=== PATIENT | female | born 1960 | race American Indian/Alaskan Native ===

== ENCOUNTER 2017-09-15 10:12 | Inpatient (IN) | payer OTHER ==
--- NOTE | 2017-09-15 11:06 | Emergency Department Report ---
Chief Complaint: Chest Pain Stated Complaint: CHEST PAIN Time Seen by Provider: 09/15/17 11:05 - HPI History of Present Illness: Patient here states that she has mid to left chest pain that started at 3:00 this morning complaining of numbness to the left arm and leg. She says she was driving at [address] to work and she had these symptoms. She said pain with movement and with deep inspiration. She is also complaining of a headache this achy pain is 8 out of 10 to left and mid chest. Feels sharp. Denies any shortness of breath headache is the front of her head and to both sides. Patient has a history of high cholesterol, partial hysterectomy and she has a history of stroke 10 years ago. Denies any nausea or vomiting. Denies any head injury. She says that pain and numbness to lower extremity on the left side is new because she usually works and walk around without any difficulties. - ROS Review of Systems: All systems are negative unless stated in HPI above - Exam Vital Signs: Vital Signs 09/15/17 10:33 Temperature 97.3 F L Pulse Rate 62 Respiratory 18 Rate Blood Pressure 153/94 O2 Sat by Pulse 99 Oximetry Physical Exam: Gen: This is a 57-year-old female well-nourished well-developed nontoxic in appearance CV: S1, S2. Regular rate rhythm negative murmur. EKG sinus rhythm at 60 bpm. Mini neurological exam: Speech is clear and fluid, alert and oriented 3. GCS of 15. Patient with abnormal gait. She is limping left lower extremity. MSE screening note: Focused history and physical exam performed. Due to findings the following was ordered: ED Medical Decision Making - Medical Decision Making MDM: Patient screened by provider in triage area. Appropriate protocol initiated and patient to be seen in main ED by ED Disposition for MSE Condition: Stable
[2017-09-15 12:08] LABS: Basophils % (Auto) 0.5 % (0.0-1.8); Eosinophils % (Auto) 4.1 % (0.0-4.3); Hematocrit 36.1 % (30.3-42.9); Hemoglobin 11.9 gm/dl (10.1-14.3); Mean Corpuscular HGB Conc 33 % (30-34); Mean Corpuscular Hemoglobin 30 pg (28-32); Mean Corpuscular Volume 92 fl (79-97); Platelet Count 275 K/mm3 (140-440); Red Blood Count 3.91 M/mm3 (3.65-5.03); Red Cell Distribution Width 14.1 % (13.2-15.2); White Blood Count 5.4 K/mm3 (4.5-11.0)
[2017-09-15 12:10] LABS: Bacteria,Urine 1+ /HPF (Negative); Bilirubin,Urine NEG (Negative); Blood,Urine SM (Negative); Ketones,Urine NEG (Negative); Leukocyte Esterase,Urine LG (Negative); Mucus,Urine FEW /HPF; Nitrite,Urine NEG (Negative); Protein,Urine <15 mg/dL mg/dL (Negative)
[2017-09-15 12:11] LABS: Anion Gap 17 mmol/L; BUN/Creatinine Ratio 16; Blood Urea Nitrogen 8 mg/dL (7-17); Calcium 8.9 mg/dL (8.4-10.2); Carbon Dioxide 26 mmol/L (22-30); Chloride 103.1 mmol/L (98-107); Glucose 92 mg/dL (65-100); Potassium 3.9 mmol/L (3.6-5.0); Sodium 142 mmol/L (137-145)
[2017-09-15 12:17] LABS: INR 0.91 (0.87-1.13)
[2017-09-15 12:18] LABS: Partial Thromboplastin Time 29.3 Sec. (24.2-36.6)
--- NOTE | 2017-09-15 12:35 | Cat Scan Report ---
CT HEAD WITHOUT CONTRAST: 09/15/17 CLINICAL: Neuro deficits less than six hours. TECHNIQUE: 2.5-mm noncontrast scans. COMPARISON:None FINDINGS: The ventricles and sulci are normal for age. No mass or mass effect. No hemorrhage, edema or extra-axial collection. The sinuses are clear. Normal orbits and soft tissues. The calvarium and skull base are intact. IMPRESSION: Normal study.
[2017-09-16] MEDS ORDERED: REGLAN IV ONE (06:24)
[2017-09-16] MEDS ORDERED: BENADRYL IV ONE (06:24)
[2017-09-16] MEDS ORDERED: NITROSTAT SL PRN (06:24)
--- NOTE | 2017-09-16 06:25 | Emergency Department Report ---
ED General Adult HPI - General Chief complaint: Chest Pain Stated complaint: CHEST PAIN Time Seen by Provider: 09/15/17 11:05 Source: patient, RN notes reviewed Mode of arrival: Ambulatory Limitations: No Limitations - History of Present Illness Initial comments: This is a 57-year-old female. The patient is previously known to this provider. Her primary care doctor is Dr. Hemphill. Patient presents to the ER with multiple complaints. The patient's first complaint is chest pain. The chest pain is central and left-sided. It moved to the left axilla. It started over 12 hours ago. It is intermittent. It has no exacerbating or relieving factors. There is no shortness of breath. There is positive nausea. There is no diaphoresis. No pulmonary embolus or DVT risk factors. Patient reports taking a few tablets of aspirin within the past week, reports mother had a myocardial infarction in her 40s, and they said her sister had a myocardial infarction in her 30s. The patient states complaints is headache. The headache is frontal. It is throbbing. It is not sudden or thunderclap in nature. It does not reach maximal intensity within an hour. It does not radiate anywhere. Has no exacerbating or relieving factors. It is not the worse headache of her life. She reports a worse headache 3 months ago. Patient Complains of resolved left upper extremity, left lower extremity numbness and weakness. This has resolved. -: Gradual Location: head, chest, left, upper extremity, lower extremity Radiation: non-radiation Severity scale (0 -10): 8 Quality: aching Consistency: intermittent Improves with: none Worsens with: none Associated Symptoms: chest pain, headaches, weakness - Related Data Allergies Allergy/AdvReac Type Severity Reaction Status Date / Time No Known Allergies Allergy Verified 09/15/17 10:33 ED Review of Systems ROS: Stated complaint: CHEST PAIN Other details as noted in HPI ED Past Medical Hx - Past Medical History Hx CVA: Yes (CVA) Additional medical history: Elevated Cholesterol - Surgical History Hx Cholecystectomy: Yes Additional Surgical History: Partial hysterectomy - Social History Smoking Status: Never Smoker Substance Use Type: None ED Physical Exam - General Limitations: No Limitations General appearance: alert, in no apparent distress - Head Head exam: Present: atraumatic, normocephalic - Eye Eye exam: Present: normal appearance, PERRL, EOMI, other (visual acuity intact to finger counting, color perception, reading at a close distance). Absent: nystagmus - ENT ENT exam: Present: normal exam, normal orophraynx, mucous membranes moist, normal external ear exam - Neck Neck exam: Present: normal inspection, full ROM - Respiratory Respiratory exam: Present: normal lung sounds bilaterally. Absent: respiratory distress - Cardiovascular Cardiovascular Exam: Present: regular rate, normal rhythm, normal heart sounds. Absent: systolic murmur, diastolic murmur, rubs, gallop - GI/Abdominal GI/Abdominal exam: Present: soft, normal bowel sounds. Absent: distended, tenderness, guarding, rebound, rigid, pulsatile mass - Extremities Exam Extremities exam: Present: normal inspection, full ROM, normal capillary refill. Absent: pedal edema, joint swelling, calf tenderness - Back Exam Back exam: Present: normal inspection, full ROM. Absent: tenderness, CVA tenderness (R), paraspinal tenderness, vertebral tenderness - Neurological Exam Neurological exam: Present: alert, oriented X3, CN II-XII intact, normal gait ( patient walks with a slight limp), other (Extraocular movements intact. Tongue midline. No facial droop. Facial sensation intact to light touch in the V1, V2 , V3 distribution bilaterally. 5 and 5 strength in 4 extremities.. Sensation is intact to light touch in 4 extremities.). Absent: motor sensory deficit - Psychiatric Psychiatric exam: Present: normal affect, normal mood - Skin Skin exam: Present: warm, dry, intact, normal color. Absent: rash ED Course Vital Signs 09/15/17 09/16/17 09/16/17 10:33 01:42 01:45 Temperature 97.3 F L Pulse Rate 62 72 61 Respiratory 18 16 Rate Blood Pressure 153/94 Blood Pressure [Left] O2 Sat by Pulse 99 Oximetry 09/16/17 09/16/17 09/16/17 01:59 02:00 02:30 Temperature Pulse Rate 55 L 69 Respiratory 18 11 L 12 Rate Blood Pressure 127/78 118/85 Blood Pressure [Left] O2 Sat by Pulse 99 Oximetry 09/16/17 09/16/17 09/16/17 03:00 03:30 04:00 Temperature Pulse Rate 58 L 54 L 63 Respiratory 12 11 L 12 Rate Blood Pressure 133/75 132/75 119/80 Blood Pressure [Left] O2 Sat by Pulse Oximetry 09/16/17 09/16/17 09/16/17 04:30 05:00 05:30 Temperature Pulse Rate 70 74 66 Respiratory 11 L 12 12 Rate Blood Pressure 117/79 108/73 122/79 Blood Pressure [Left] O2 Sat by Pulse Oximetry 09/16/17 09/16/17 06:00 07:44 Temperature Pulse Rate 66 70 Respiratory 12 16 Rate Blood Pressure 120/67 Blood Pressure 151/81 [Left] O2 Sat by Pulse 94 Oximetry - Reevaluation(s) Reevaluation #1: 09/16/17 07:27 Differential diagnosis, including when not limited to: Acute coronary syndrome, aortic catastrophe, transient ischemic attack, migraine headache, cluster headache, conversion disorder, radiculopathy Assessment and plan: 67-year-old female with a strong family history for coronary artery disease, with chest pain and resolving neurologic symptoms. She is afebrile with reassuring vital signs, walks with a steady gait, although has a slight limp. Has an NIH score of 0, not a TPA candidate. Noncontrast CT scan of the brain is negative. EKG with nonspecific septal abnormalities, CT scan of the chest, abdomen, pelvis has been performed, interpretation pending to exclude aortic catastrophe. Clinically doubt aortic catastrophe, has equal pulses in the bilateral upper and lower extremities, and when I initially walked into the room the patient was sleeping and in no distress. There is also no pulsatile abdominal mass. Her exam and history are not consistent with acute epidural compression syndrome. Downgoing plantar reflexes. Sensation intact to light touch and pain in the upper and lower extremities. Reevaluation #2: 09/16/17 08:09 As expected, CT scan negative for aortic catastrophe. Patient was ordered for aspirin. Case presented to the medical nurse practitioner, Yasmine Schroeder; she accepts the patient to the medical service ED Medical Decision Making - Lab Data Result diagrams: 09/15/17 11:34 09/15/17 11:34 Vital Signs 09/15/17 09/16/17 09/16/17 10:33 01:42 01:45 Temperature 97.3 F L Pulse Rate 62 72 61 Respiratory 18 16 Rate Blood Pressure 153/94 O2 Sat by Pulse 99 Oximetry 09/16/17 09/16/17 09/16/17 01:59 02:00 02:30 Temperature Pulse Rate 55 L 69 Respiratory 18 11 L 12 Rate Blood Pressure 127/78 118/85 O2 Sat by Pulse 99 Oximetry 09/16/17 09/16/17 09/16/17 03:00 03:30 04:00 Temperature Pulse Rate 58 L 54 L 63 Respiratory 12 11 L 12 Rate Blood Pressure 133/75 132/75 119/80 O2 Sat by Pulse Oximetry 09/16/17 09/16/17 09/16/17 04:30 05:00 05:30 Temperature Pulse Rate 70 74 66 Respiratory 11 L 12 12 Rate Blood Pressure 117/79 108/73 122/79 O2 Sat by Pulse Oximetry 09/16/17 06:00 Temperature Pulse Rate 66 Respiratory 12 Rate Blood Pressure 120/67 O2 Sat by Pulse Oximetry Lab Results 09/15/17 09/15/17 09/15/17 Range/Units 10:52 11:34 11:34 WBC 5.4 (4.5-11.0) K/mm3 RBC 3.91 (3.65-5.03) M/mm3 Hgb 11.9 (10.1-14.3) gm/dl Hct 36.1 (30.3-42.9) % MCV 92 (79-97) fl MCH 30 (28-32) pg MCHC 33 (30-34) % RDW 14.1 (13.2-15.2) % Plt Count 275 (140-440) K/mm3 Lymph % (Auto) 31.8 (13.4-35.0) % Bates % (Auto) 9.1 H (0.0-7.3) % Eos % (Auto) 4.1 (0.0-4.3) % Baso % (Auto) 0.5 (0.0-1.8) % Lymph # 1.7 (1.2-5.4) K/mm3 Bates # 0.5 (0.0-0.8) K/mm3 Eos # 0.2 (0.0-0.4) K/mm3 Baso # 0.0 (0.0-0.1) K/mm3 Seg Neutrophils % 54.5 (40.0-70.0) % Seg Neutrophils # 3.0 (1.8-7.7) K/mm3 PT 12.7 (12.2-14.9) Sec. INR 0.91 (0.87-1.13) APTT 29.3 (24.2-36.6) Sec. Sodium (137-145) mmol/L Potassium (3.6-5.0) mmol/L Chloride (98-107) mmol/L Carbon Dioxide (22-30) mmol/L Anion Gap mmol/L BUN (7-17) mg/dL Creatinine (0.7-1.2) mg/dL Estimated GFR ml/min BUN/Creatinine Ratio % Glucose (65-100) mg/dL Calcium (8.4-10.2) mg/dL Troponin T (0.00-0.029) ng/mL Urine Color Yellow (Yellow) Urine Turbidity Clear (Clear) Urine pH 6.0 (5.0-7.0) Ur Specific [place] 1.019 (1.003-1.030) Urine Protein <15 mg/dl (Negative) mg/dL Urine Glucose (UA) Neg (Negative) mg/dL Urine Ketones Neg (Negative) mg/dL Urine Blood Sm (Negative) Urine Nitrite Neg (Negative) Urine Bilirubin Neg (Negative) Urine Urobilinogen 2.0 (<2.0) mg/dL Ur Leukocyte Esterase Lg (Negative) Urine WBC (Auto) 6.0 (0.0-6.0) /HPF Urine RBC (Auto) 7.0 (0.0-6.0) /HPF U Epithel Cells (Auto) 5.0 (0-13.0) /HPF Urine Bacteria (Auto) 1+ (Negative) /HPF Urine Mucus Few /HPF Blood Type Antibody Screen 09/15/17 09/15/17 09/15/17 Range/Units 11:34 11:34 15:38 WBC (4.5-11.0) K/mm3 RBC (3.65-5.03) M/mm3 Hgb (10.1-14.3) gm/dl Hct (30.3-42.9) % MCV (79-97) fl MCH (28-32) pg MCHC (30-34) % RDW (13.2-15.2) % Plt Count (140-440) K/mm3 Lymph % (Auto) (13.4-35.0) % Bates % (Auto) (0.0-7.3) % Eos % (Auto) (0.0-4.3) % Baso % (Auto) (0.0-1.8) % Lymph # (1.2-5.4) K/mm3 Bates # (0.0-0.8) K/mm3 Eos # (0.0-0.4) K/mm3 Baso # (0.0-0.1) K/mm3 Seg Neutrophils % (40.0-70.0) % Seg Neutrophils # (1.8-7.7) K/mm3 PT (12.2-14.9) Sec. INR (0.87-1.13) APTT (24.2-36.6) Sec. Sodium 142 (137-145) mmol/L Potassium 3.9 (3.6-5.0) mmol/L Chloride 103.1 (98-107) mmol/L Carbon Dioxide 26 (22-30) mmol/L Anion Gap 17 mmol/L BUN 8 (7-17) mg/dL Creatinine 0.5 L (0.7-1.2) mg/dL Estimated GFR > 60 ml/min BUN/Creatinine Ratio 16 % Glucose 92 (65-100) mg/dL Calcium 8.9 (8.4-10.2) mg/dL Troponin T < 0.010 < 0.010 (0.00-0.029) ng/mL Urine Color (Yellow) Urine Turbidity (Clear) Urine pH (5.0-7.0) Ur Specific [place] (1.003-1.030) Urine Protein (Negative) mg/dL Urine Glucose (UA) (Negative) mg/dL Urine Ketones (Negative) mg/dL Urine Blood (Negative) Urine Nitrite (Negative) Urine Bilirubin (Negative) Urine Urobilinogen (<2.0) mg/dL Ur Leukocyte Esterase (Negative) Urine WBC (Auto) (0.0-6.0) /HPF Urine RBC (Auto) (0.0-6.0) /HPF U Epithel Cells (Auto) (0-13.0) /HPF Urine Bacteria (Auto) (Negative) /HPF Urine Mucus /HPF Blood Type O POSITIVE Antibody Screen Negative 09/15/17 Range/Units 17:23 WBC (4.5-11.0) K/mm3 RBC (3.65-5.03) M/mm3 Hgb (10.1-14.3) gm/dl Hct (30.3-42.9) % MCV (79-97) fl MCH (28-32) pg MCHC (30-34) % RDW (13.2-15.2) % Plt Count (140-440) K/mm3 Lymph % (Auto) (13.4-35.0) % Bates % (Auto) (0.0-7.3) % Eos % (Auto) (0.0-4.3) % Baso % (Auto) (0.0-1.8) % Lymph # (1.2-5.4) K/mm3 Bates # (0.0-0.8) K/mm3 Eos # (0.0-0.4) K/mm3 Baso # (0.0-0.1) K/mm3 Seg Neutrophils % (40.0-70.0) % Seg Neutrophils # (1.8-7.7) K/mm3 PT (12.2-14.9) Sec. INR (0.87-1.13) APTT (24.2-36.6) Sec. Sodium (137-145) mmol/L Potassium (3.6-5.0) mmol/L Chloride (98-107) mmol/L Carbon Dioxide (22-30) mmol/L Anion Gap mmol/L BUN (7-17) mg/dL Creatinine (0.7-1.2) mg/dL Estimated GFR ml/min BUN/Creatinine Ratio % Glucose (65-100) mg/dL Calcium (8.4-10.2) mg/dL Troponin T < 0.010 (0.00-0.029) ng/mL Urine Color (Yellow) Urine Turbidity (Clear) Urine pH (5.0-7.0) Ur Specific [place] (1.003-1.030) Urine Protein (Negative) mg/dL Urine Glucose (UA) (Negative) mg/dL Urine Ketones (Negative) mg/dL Urine Blood (Negative) Urine Nitrite (Negative) Urine Bilirubin (Negative) Urine Urobilinogen (<2.0) mg/dL Ur Leukocyte Esterase (Negative) Urine WBC (Auto) (0.0-6.0) /HPF Urine RBC (Auto) (0.0-6.0) /HPF U Epithel Cells (Auto) (0-13.0) /HPF Urine Bacteria (Auto) (Negative) /HPF Urine Mucus /HPF Blood Type Antibody Screen - EKG Data -: EKG Interpreted by Me - EKG Data 09/16/17 07:29 Normal sinus, 60 bpm, incomplete right bundle branch block, normal axis, QTC within normal limits, not morphologically consistent with ST elevation myocardial infarction Repeat EKG is unchanged. - Radiology Data Radiology results: report reviewed, image reviewed Noncontrast CT scan of the brain is negative. CT scan angiogram of the chest, abdomen, pelvis: Critical care attestation.: If time is entered above; I have spent that time in minutes in the direct care of this critically ill patient, excluding procedure time. ED Disposition Clinical Impression: TIA (transient ischemic attack), Chest pain Disposition: [id number] OP ADMIT IP TO THIS HOSP Is pt being admited?: Yes Does the pt Need Aspirin: Yes Condition: Good Instructions: Chest Pain (ED) Referrals: REJI HEMPHILL MD [Primary Care Provider] - 3-5 Days
[2017-09-16] MEDS ORDERED: NACL ONE (06:50)
--- NOTE | 2017-09-16 07:49 | Cat Scan Report ---
CTA CHEST ABDOMEN AND PELVIS: HISTORY: Dissection protocol. No appropriate clinical history provided. COMPARISON: none. TECHNIQUE: Helical CT in 1.25mm intervals following IV contrast. Pulmonary embolus protocol. Sagittal and coronal reformatted images. Rotational MIP images. FINDINGS: The thoracic aorta, abdominal aorta, celiac axis, SMA, YOUNG, bilateral iliac systems and bilateral single renal arteries are widely patent with less than 20% stenosis. No dissection or aneurysm. No significant atherosclerotic change. Heart and mediastinal structures are within normal limits. The lungs are clear and well-aerated. No acute thoracic bony abnormality. 2.2 cm cyst in the left hepatic lobe is noted. The remainder of the liver is unremarkable. The gallbladder has been removed. The remaining abdominal and pelvis are unremarkable. Hysterectomy changes are suspected. No abdominal mass or fluid collection. No acute bony abnormality. IMPRESSION: Unremarkable exam
[2017-09-16] MEDS ORDERED: BABY ASPIRIN PO ONE (08:09)
[2017-09-16] MEDS ORDERED: MILK OF MAGNESIA PO PRN (08:45)
[2017-09-16] MEDS ORDERED: REGLAN PO PRN (08:45)
[2017-09-16] MEDS ORDERED: PHENERGAN PR PRN (08:45)
[2017-09-16] MEDS ORDERED: ZOFRAN IV PRN (08:45)
[2017-09-16] MEDS ORDERED: SODIUM CHLORIDE FLUSH SYRINGE 10 ML IV PRN ×2 (08:45)
[2017-09-16] MEDS ORDERED: DULCOLAX PR PRN (08:45)
[2017-09-16 09:09] LABS: Basophils % (Auto) 0.6 % (0.0-1.8); Eosinophils % (Auto) 2.6 % (0.0-4.3); Hematocrit 37.6 % (30.3-42.9); Hemoglobin 12.1 gm/dl (10.1-14.3); Mean Corpuscular HGB Conc 32 % (30-34); Mean Corpuscular Hemoglobin 30 pg (28-32); Mean Corpuscular Volume 92 fl (79-97); Platelet Count 258 K/mm3 (140-440); Red Blood Count 4.09 M/mm3 (3.65-5.03); Red Cell Distribution Width 13.7 % (13.2-15.2); White Blood Count 5.7 K/mm3 (4.5-11.0)
--- NOTE | 2017-09-16 09:11 | History and Physical Report ---
History of Present Illness Date of examination: 09/16/17 Date of admission: 09/16/17 08:12 Chief complaint: Headache, with Chest pain since 4am 01/14/17 Left leg numbness since afternoon 01/14/17 History of present illness: Patient is a 57 year old female with prior hx of Cholecystecomy, Partial hystrectomy, TIA with residual right upper ext numbness 10 years ago and intermittently on ASA most days than not. She presents to the ER with Chest pain that initially started 4am day before admission centrally located with pleuritic component and in one occasion radiated to the left axilla. She denies any exertional component, or reproduction. She rates is a 8/10 at its worse. she also reports Headache frontal and occipital with phono and photophobia, while she reported nausea to the ER she denies this to me. she also denies any diaphoresis or palpitation or vision changes. The headache is a 3/10 and not the worst she has had She also reports left lower ext numbness which is new and associated with weakness, and was unable to move it at a time. this happened more than 6 hrs prior to presentation. she reports family hx of CADmother had a myocardial infarction in her 40s, and they said her sister had a myocardial infarction in her 30s. Otherwise no other alleviating or aggravating factors to reported symptoms. Past History Past Medical History: stroke (TIA) Past Surgical History: cholecystectomy, hysterectomy (partial) Social history: no significant social history, full code. denies: smoking, alcohol abuse, prescription drug abuse, IV drug use Family history: CAD (mother and sister) Medications and Allergies Allergies Allergy/AdvReac Type Severity Reaction Status Date / Time No Known Allergies Allergy Verified 09/15/17 10:33 Active Meds: Active Medications Acetaminophen (Tylenol) 650 mg PO Q4H PRN PRN Reason: Pain, Mild (1-3) Aspirin (Ecotrin) 325 mg PO QDAY LONG Atorvastatin Calcium (Lipitor) 40 mg PO QHS LONG Bisacodyl (Dulcolax) 10 mg [place] QDAY PRN PRN Reason: Constipation Magnesium Hydroxide (Milk Of Magnesia) 30 ml PO Q4H PRN PRN Reason: Constipation Metoclopramide HCl (Reglan) 10 mg PO Q6H PRN PRN Reason: Nausea And Vomiting Nitroglycerin (Nitrostat) 0.4 mg SL .Q5MIN PRN PRN Reason: Chest Pain Last Admin: 09/16/17 08:20 Dose: 0.4 mg Ondansetron HCl (Zofran) 4 mg IV Q8H PRN PRN Reason: N/V unrelieved by Reglan Promethazine HCl (Phenergan) 25 mg NC Q6H PRN PRN Reason: Nausea And Vomiting Sodium Chloride (Sodium Chloride Flush Syringe 10 Ml) 10 ml IV PRN PRN PRN Reason: LINE FLUSH Review of Systems Constitutional: weakness (left lower ext ), no weight loss, no weight gain, no fever, no anorexia, no fatigue Eyes: bilateral: photophobia Ears, nose, mouth and throat: no ear pain, no tinnitis, no nasal congestion, no sinus pressure, no sinus pain Cardiovascular: chest pain, no rapid/irregular heart beat Respiratory: pain on inspiration, no cough, no shortness of breath, no wheezing , no home oxygen Gastrointestinal: nausea, no abdominal pain, no vomiting, no diarrhea, no constipation, no change in bowel habits, no hematemesis, no coffee ground emesis Musculoskeletal: leg numbness/tingling, muscle weakness, no neck stiffness, no neck pain, no shooting arm pain, no arm numbness/tingling, no low back pain, no shooting leg pain, no redness of joints Integumentary: no rash, no pruritis, no sores, no wounds, no jaundice Neurological: paralysis, weakness, headaches, gait dysfunction Psychiatric: no anxiety, no memory loss, no change in sleep habits, no paranoia , no depression, no hopelessness Endocrine: no heat intolerance, no polyphagia, no excessive thirst, no polydipsia, no polyuria, no nocturia, no excessive sweating Hematologic/Lymphatic: no easy bruising, no easy bleeding, no lymphadenopathy, no lymphedema Allergic/Immunologic: no urticaria, no allergic rhinitis, no anaphylaxis Exam - Physical Exam Narrative exam: VITAL SIGNS: Reviewed. GENERAL: The patient appeared well nourished and normally developed. Vital signs as documented. HEAD: No signs of head trauma. EYES: Pupils are equal. Extraocular motions intact. EARS: Hearing grossly intact. MOUTH: Oropharynx is normal. NECK: No adenopathy, no JVD. CHEST: Chest with clear breath sounds bilaterally. No wheezes, rales, or rhonchi. CARDIAC: Regular rate and rhythm. S1 and S2, without murmurs, gallops, or rubs. VASCULAR: No Edema. Peripheral pulses normal and equal in all extremities. ABDOMEN: Soft, without detectable tenderness. No sign of distention. No rebound or guarding, and no masses palpated. Bowel Sounds normal. MUSCULOSKELETAL: Good range of motion of all major joints. Extremities without clubbing, cyanosis or edema. NEUROLOGIC EXAM: Alert and oriented x 3. No focal sensory or strength deficits. Speech normal. Follows commands. PSYCHIATRIC: Mood normal. SKIN: No rash or lesions. - Constitutional Vitals: Temp Pulse Resp BP Pulse Ox 97.3 F L 84 16 122/71 94 09/15/17 10:33 09/16/17 08:20 09/16/17 07:44 09/16/17 08:20 09/16/17 07:44 Results - Labs CBC & Chem 7: 09/16/17 08:58 09/16/17 08:58 Labs: Laboratory Last Values WBC 5.7 K/mm3 (4.5-11.0) 09/16/17 08:58 RBC 4.09 M/mm3 (3.65-5.03) 09/16/17 08:58 Hgb 12.1 gm/dl (10.1-14.3) 09/16/17 08:58 Hct 37.6 % (30.3-42.9) 09/16/17 08:58 MCV 92 fl (79-97) 09/16/17 08:58 MCH 30 pg (28-32) 09/16/17 08:58 MCHC 32 % (30-34) 09/16/17 08:58 RDW 13.7 % (13.2-15.2) 09/16/17 08:58 Plt Count 258 K/mm3 (140-440) 09/16/17 08:58 Lymph % (Auto) 25.7 % (13.4-35.0) 09/16/17 08:58 [place] % (Auto) 9.1 % (0.0-7.3) H 09/16/17 08:58 Eos % (Auto) 2.6 % (0.0-4.3) 09/16/17 08:58 Baso % (Auto) 0.6 % (0.0-1.8) 09/16/17 08:58 Lymph # 1.5 K/mm3 (1.2-5.4) 09/16/17 08:58 [place] # 0.5 K/mm3 (0.0-0.8) 09/16/17 08:58 Eos # 0.1 K/mm3 (0.0-0.4) 09/16/17 08:58 Baso # 0.0 K/mm3 (0.0-0.1) 09/16/17 08:58 Seg Neutrophils % 62.0 % (40.0-70.0) 09/16/17 08:58 Seg Neutrophils # 3.6 K/mm3 (1.8-7.7) 09/16/17 08:58 PT 12.7 Sec. (12.2-14.9) 09/15/17 11:34 INR 0.91 (0.87-1.13) 09/15/17 11:34 APTT 29.3 Sec. (24.2-36.6) 09/15/17 11:34 Sodium 142 mmol/L (137-145) 09/15/17 11:34 Potassium 3.9 mmol/L (3.6-5.0) 09/15/17 11:34 Chloride 103.1 mmol/L (98-107) 09/15/17 11:34 Carbon Dioxide 26 mmol/L (22-30) 09/15/17 11:34 Anion Gap 17 mmol/L 09/15/17 11:34 BUN 8 mg/dL (7-17) 09/15/17 11:34 Creatinine 0.5 mg/dL (0.7-1.2) L 09/15/17 11:34 Estimated GFR > 60 ml/min 09/15/17 11:34 BUN/Creatinine Ratio 16 % 09/15/17 11:34 Glucose 92 mg/dL (65-100) 09/15/17 11:34 Calcium 8.9 mg/dL (8.4-10.2) 09/15/17 11:34 Troponin T < 0.010 ng/mL (0.00-0.029) 09/15/17 17:23 Urine Color Yellow (Yellow) 09/15/17 10:52 Urine Turbidity Clear (Clear) 09/15/17 10:52 Urine pH 6.0 (5.0-7.0) 09/15/17 10:52 Ur Specific [place] 1.019 (1.003-1.030) 09/15/17 10:52 Urine Protein <15 mg/dl mg/dL (Negative) 09/15/17 10:52 Urine Glucose (UA) Neg mg/dL (Negative) 09/15/17 10:52 Urine Ketones Neg mg/dL (Negative) 09/15/17 10:52 Urine Blood Sm (Negative) 09/15/17 10:52 Urine Nitrite Neg (Negative) 09/15/17 10:52 Urine Bilirubin Neg (Negative) 09/15/17 10:52 Urine Urobilinogen 2.0 mg/dL (<2.0) 09/15/17 10:52 Ur Leukocyte Esterase Lg (Negative) 09/15/17 10:52 Urine WBC (Auto) 6.0 /HPF (0.0-6.0) 09/15/17 10:52 Urine RBC (Auto) 7.0 /HPF (0.0-6.0) 09/15/17 10:52 U Epithel Cells (Auto) 5.0 /HPF (0-13.0) 09/15/17 10:52 Urine Bacteria (Auto) 1+ /HPF (Negative) 09/15/17 10:52 Urine Mucus Few /HPF 09/15/17 10:52 Blood Type O POSITIVE 09/15/17 11:34 Antibody Screen Negative 09/15/17 11:34 - Imaging and Cardiology Chest x-ray: image reviewed (no acute pathology noted) CT scan - abdomen: image reviewed (no acute pathology noted) CT scan - chest: image reviewed (no acute pathology noted) Assessment and Plan Assessment and plan: Patient's a 57-year-old female with history of cholecystectomy, partial hysterectomy, TIA about 10 years ago with residual right-sided upper extremity numbness who presents to the hospital with complaint of chest pain or loss prior to presentation centrally located nonreproducible but pleuritic in nature with some radiation to the axilla and associated headache of the same timeframe. The tendon intensity with associated phonophobia photophobia and left lower extremity weakness and numbness. Initial studies in the ER included a CTA of the chest and abdomen and CT of the head were negative EKG shows normal sinus rhythm. According to patient pain of the chest comes and goes would not agree to evaluate effectiveness of noted. Patient has premature coronary artery disease in the family Atypical chest pain likely secondary to GERD but will rule out ACS, severe and premature ID in the family * Aspirin, statin, morphine, oxygen as needed, Lexiscan stress test and echocardiogram. Hemiplegic migraine * Patient with remote history of migraines although with prior history of TIA of this point I doubt that this is a TIA or CVA symptoms initial CT is negative but will obtain neurology consult as previously started statin has been started blood pressures are properly controlled. Pain control until full evaluation is completed Old Right upper extremity paresthesias and new left lower extremity hemiplegia. * PT OT evaluation and treat Bradycardia * Asymptomatic. DVT and GI prophylaxis Plan of care discussed with the patient in detail Advance Directives: Yes Plan of care discussed with patient/family: Yes
[2017-09-16 09:22] LABS: Anion Gap 13 mmol/L; BUN/Creatinine Ratio 12; Blood Urea Nitrogen 7 mg/dL (7-17); Calcium 8.5 mg/dL (8.4-10.2); Carbon Dioxide 27 mmol/L (22-30); Chloride 103.5 mmol/L (98-107); Glucose 94 mg/dL (65-100); Potassium 3.9 mmol/L (3.6-5.0); Sodium 140 mmol/L (137-145)
[2017-09-16] MEDS ORDERED: LEXISCAN IV ONE ×2 (11:47→12:15)
--- NOTE | 2017-09-16 14:15 | Magnetic Resonance Report ---
MRI OF THE BRAIN WITHOUT CONTRAST: HISTORY: TIA PROCEDURE: Multiplanar, multisequence MR imaging of the brain without IV contrast was performed. FINDINGS: Compared to the CT head without contrast dated 09/15/17. The brain parenchyma signal intensity and its medel white interface are within normal limits on all sequences. No evidence for acute ischemia, hemorrhage or mass. No chronic infarct or extra-axial fluid collection. The midline structures are central. The basal cisterns are patent. Normal ventricular size. The orbital cavities and sella turcica demonstrate no abnormality. The visualized paranasal sinuses and mastoid air cells are well aerated. IMPRESSION: Unremarkable non-enhanced MRI of the brain.
[2017-09-16] MEDS: TYLENOL PO PRN (17:46)
--- NOTE | 2017-09-17 03:00 | Treadmill Report ---
STRESS TEST INDICATION FOR THE PROCEDURE: Chest pain. ORDERING PHYSICIAN: Dr. Mena. FINDINGS: There is no scintigraphic evidence of myocardial ischemia. There is evidence of a small apical wall defect that is fixed. Gated wall imaging reveals normal wall motion and wall thickening. The left ventricular ejection fraction is measured at 77%. CONCLUSION: 1. No scintigraphic evidence of myocardial ischemia. 2. Small fixed apical wall defect. 3. Normal left ventricular size and systolic function. This is a low risk myocardial perfusion scan associated with 1-year cardiovascular mortality of less than 1%. JOB# [id number] FARHAD/TIMO
[2017-09-17] MEDS: TYLENOL PO PRN (08:34)
[2017-09-17] MEDS: ECOTRIN PO SCH (10:55)
--- NOTE | 2017-09-17 13:04 | Consultation ---
History of Present Illness Consult date: 09/17/17 History of present illness: went over the recent MRI and there is no acute stroke cardiac w/u pending TIA w/u is being reviewed Thanks Past History Past Medical History: stroke (TIA) Past Surgical History: cholecystectomy, hysterectomy (partial) Social history: no significant social history, full code. denies: smoking, alcohol abuse, prescription drug abuse, IV drug use Family history: CAD (mother and sister) Medications and Allergies Allergies Allergy/AdvReac Type Severity Reaction Status Date / Time No Known Allergies Allergy Verified 09/15/17 10:33 Active Meds: Active Medications Acetaminophen (Tylenol) 650 mg PO Q4H PRN PRN Reason: Pain, Mild (1-3) Last Admin: 09/17/17 08:34 Dose: 650 mg Aspirin (Ecotrin) 325 mg PO QDAY [facility] Last Admin: 09/17/17 10:55 Dose: 325 mg Atorvastatin Calcium (Lipitor) 40 mg PO QHS [facility] Last Admin: 09/16/17 21:50 Dose: 40 mg Bisacodyl (Dulcolax) 10 mg ME QDAY PRN PRN Reason: Constipation Magnesium Hydroxide (Milk Of Magnesia) 30 ml PO Q4H PRN PRN Reason: Constipation Metoclopramide HCl (Reglan) 10 mg PO Q6H PRN PRN Reason: Nausea And Vomiting Nitroglycerin (Nitrostat) 0.4 mg SL .Q5MIN PRN PRN Reason: Chest Pain Last Admin: 09/16/17 08:20 Dose: 0.4 mg Ondansetron HCl (Zofran) 4 mg IV Q8H PRN PRN Reason: N/V unrelieved by Reglan Promethazine HCl (Phenergan) 25 mg ME Q6H PRN PRN Reason: Nausea And Vomiting Sodium Chloride (Sodium Chloride Flush Syringe 10 Ml) 10 ml IV PRN PRN PRN Reason: LINE FLUSH Physical Examination - Vital Signs Vital Signs: Vital Signs Temp Pulse Resp BP Pulse Ox 97.3 F L 62 18 153/94 99 09/15/17 10:33 09/15/17 10:33 09/15/17 10:33 09/15/17 10:33 09/15/17 10:33 Results - Laboratory Findings CBC and BMP: 09/16/17 08:58 09/16/17 08:58 Abnormal Lab Findings: Abnormal Labs 09/15/17 09/15/17 09/16/17 11:34 11:34 08:58 [place] % (Auto) 9.1 H 9.1 H Creatinine 0.5 L POC Glucose 09/16/17 09/16/17 09/17/17 08:58 21:53 11:03 [place] % (Auto) Creatinine 0.6 L POC Glucose 110 H 110 H
--- NOTE | 2017-09-17 15:07 | Progress Note ---
Assessment and Plan Assessment and plan: Patient's a 57-year-old female with history of cholecystectomy, partial hysterectomy, TIA about 10 years ago with residual right-sided upper extremity numbness who presents to the hospital with complaint of chest pain or loss prior to presentation centrally located nonreproducible but pleuritic in nature with some radiation to the axilla and associated headache of the same timeframe. The tendon intensity with associated phonophobia photophobia and left lower extremity weakness and numbness. Initial studies in the ER included a CTA of the chest and abdomen and CT of the head were negative EKG shows normal sinus rhythm. According to patient pain of the chest comes and goes would not agree to evaluate effectiveness of noted. Patient has premature coronary artery disease in the family Atypical chest pain likely secondary to GERD but will rule out ACS, severe and premature MD in the family * Aspirin, statin, morphine, oxygen as needed, stress test was negative. Hemiplegic migraine * Patient with remote history of migraines although with prior history of TIA of this point I doubt that this is a TIA or CVA symptoms initial CT is negative but will obtain neurology consult as previously started statin has been started blood pressures are properly controlled. Pain control until full evaluation is completed * Await for neurology evaluation * MRI is unrevealing. Old Right upper extremity paresthesias and new left lower extremity hemiplegia. * PT OT evaluation and treat Bradycardia * Asymptomatic. DVT and GI prophylaxis Plan of care discussed with the patient in detail History Interval history: Patient seen and examined this morning still with mild chest pain centrally located not reproducible worse with lying supine. Stress test was done and is negative. Still with left lower extremity weakness. The patient initially concerned that she had not seen a physician but eventually recalled that I did see her yesterday. She had this point denies any fever denies any blurry vision. She rates the headache at 210 in intensity at this point. Hospitalist Physical - Physical exam Narrative exam: VITAL SIGNS: Reviewed. GENERAL: The patient appeared well nourished and normally developed. Vital signs as documented. HEAD: No signs of head trauma. EYES: Pupils are equal. Extraocular motions intact. EARS: Hearing grossly intact. MOUTH: Oropharynx is normal. NECK: No adenopathy, no JVD. CHEST: Chest with clear breath sounds bilaterally. No wheezes, rales, or rhonchi. CARDIAC: Regular rate and rhythm. S1 and S2, without murmurs, gallops, or rubs. VASCULAR: No Edema. Peripheral pulses normal and equal in all extremities. ABDOMEN: Soft, without detectable tenderness. No sign of distention. No rebound or guarding, and no masses palpated. Bowel Sounds normal. MUSCULOSKELETAL: Good range of motion of all major joints. Extremities without clubbing, cyanosis or edema. NEUROLOGIC EXAM: Alert and oriented x 3. No focal sensory or strength deficits. Speech normal. Follows commands. PSYCHIATRIC: Mood normal. SKIN: No rash or lesions. - Constitutional Vitals: Temp Pulse Resp BP Pulse Ox 98.5 F 61 20 133/76 95 09/17/17 12:13 09/17/17 12:13 09/17/17 12:13 09/17/17 12:13 09/17/17 12:13 Results - Labs CBC & Chem 7: 09/16/17 08:58 09/16/17 08:58 Labs: Laboratory Last Values WBC 5.7 K/mm3 (4.5-11.0) 09/16/17 08:58 RBC 4.09 M/mm3 (3.65-5.03) 09/16/17 08:58 Hgb 12.1 gm/dl (10.1-14.3) 09/16/17 08:58 Hct 37.6 % (30.3-42.9) 09/16/17 08:58 MCV 92 fl (79-97) 09/16/17 08:58 MCH 30 pg (28-32) 09/16/17 08:58 MCHC 32 % (30-34) 09/16/17 08:58 RDW 13.7 % (13.2-15.2) 09/16/17 08:58 Plt Count 258 K/mm3 (140-440) 09/16/17 08:58 Lymph % (Auto) 25.7 % (13.4-35.0) 09/16/17 08:58 [place] % (Auto) 9.1 % (0.0-7.3) H 09/16/17 08:58 Eos % (Auto) 2.6 % (0.0-4.3) 09/16/17 08:58 Baso % (Auto) 0.6 % (0.0-1.8) 09/16/17 08:58 Lymph # 1.5 K/mm3 (1.2-5.4) 09/16/17 08:58 [place] # 0.5 K/mm3 (0.0-0.8) 09/16/17 08:58 Eos # 0.1 K/mm3 (0.0-0.4) 09/16/17 08:58 Baso # 0.0 K/mm3 (0.0-0.1) 09/16/17 08:58 Seg Neutrophils % 62.0 % (40.0-70.0) 09/16/17 08:58 Seg Neutrophils # 3.6 K/mm3 (1.8-7.7) 09/16/17 08:58 PT 12.7 Sec. (12.2-14.9) 09/15/17 11:34 INR 0.91 (0.87-1.13) 09/15/17 11:34 APTT 29.3 Sec. (24.2-36.6) 09/15/17 11:34 Sodium 140 mmol/L (137-145) 09/16/17 08:58 Potassium 3.9 mmol/L (3.6-5.0) 09/16/17 08:58 Chloride 103.5 mmol/L (98-107) 09/16/17 08:58 Carbon Dioxide 27 mmol/L (22-30) 09/16/17 08:58 Anion Gap 13 mmol/L 09/16/17 08:58 BUN 7 mg/dL (7-17) 09/16/17 08:58 Creatinine 0.6 mg/dL (0.7-1.2) L 09/16/17 08:58 Estimated GFR > 60 ml/min 09/16/17 08:58 BUN/Creatinine Ratio 12 % 09/16/17 08:58 Glucose 94 mg/dL (65-100) 09/16/17 08:58 POC Glucose 110 (70-105) H 09/17/17 11:03 Calcium 8.5 mg/dL (8.4-10.2) 09/16/17 08:58 Troponin T < 0.010 ng/mL (0.00-0.029) 09/15/17 17:23 Triglycerides 51 mg/dL (2-149) 09/17/17 07:26 Cholesterol 185 mg/dL (50-199) 09/17/17 07:26 LDL Cholesterol Direct 123 mg/dL (50-130) 09/17/17 07:26 HDL Cholesterol 52 mg/dL (40-59) 09/17/17 07:26 Cholesterol/HDL Ratio 3.55 % 09/17/17 07:26 Urine Color Yellow (Yellow) 09/15/17 10:52 Urine Turbidity Clear (Clear) 09/15/17 10:52 Urine pH 6.0 (5.0-7.0) 09/15/17 10:52 Ur Specific [place] 1.019 (1.003-1.030) 09/15/17 10:52 Urine Protein <15 mg/dl mg/dL (Negative) 09/15/17 10:52 Urine Glucose (UA) Neg mg/dL (Negative) 09/15/17 10:52 Urine Ketones Neg mg/dL (Negative) 09/15/17 10:52 Urine Blood Sm (Negative) 09/15/17 10:52 Urine Nitrite Neg (Negative) 09/15/17 10:52 Urine Bilirubin Neg (Negative) 09/15/17 10:52 Urine Urobilinogen 2.0 mg/dL (<2.0) 09/15/17 10:52 Ur Leukocyte Esterase Lg (Negative) 09/15/17 10:52 Urine WBC (Auto) 6.0 /HPF (0.0-6.0) 09/15/17 10:52 Urine RBC (Auto) 7.0 /HPF (0.0-6.0) 09/15/17 10:52 U Epithel Cells (Auto) 5.0 /HPF (0-13.0) 09/15/17 10:52 Urine Bacteria (Auto) 1+ /HPF (Negative) 09/15/17 10:52 Urine Mucus Few /HPF 09/15/17 10:52 Blood Type O POSITIVE 09/15/17 11:34 Antibody Screen Negative 09/15/17 11:34 - Imaging and Cardiology MRI - head: image reviewed (no acute pathology)
[2017-09-18] MEDS ORDERED: NORCO 5/325 PO ONE (00:35)
[2017-09-18] MEDS: ECOTRIN PO SCH (09:26)
[2017-09-18] MEDS ORDERED: FIORICET PO PRN (11:51)
[2017-09-18] MEDS ORDERED: NORCO 7.5/325 PO PRN (11:51)
--- NOTE | 2017-09-18 11:56 | Discharge Summary ---
Providers - Providers Date of Admission: 09/16/17 08:12 Attending physician: HERMAN PAIGE MD 09/16/17 Consult to Cardiac Rehabilitation [CONS] Routine Reason For Exam: Phase I Consult to Physician [CONS] Routine Consulting Provider: PUMA PINEDA Reason For Exam: TIA Place consult to:: dr. pineda Notified:: office Phone number called:: Was contact made?: Yes If yes, spoke with:: grey Time called:: 11:13 09/16/17 08:46 Occupational Therapy Evaluate and Treat [CONS] Routine Comment: Reason For Exam: Neuro deficits Physical Therapy Evaluation and Treat [CONS] Routine Comment: Reason For Exam: Neuro deficits Primary care physician: REJI HEMPHILL Hospitalization Reason for admission: CHEST PAIN, HEADACHE AND LEFT LOWER EXT PARASTHESIA Condition: Stable Hospital course: Patient's a 57-year-old female with history of cholecystectomy, partial hysterectomy, TIA about 10 years ago with residual right-sided upper extremity numbness who presents to the hospital with complaint of chest pain or loss prior to presentation centrally located nonreproducible but pleuritic in nature with some radiation to the axilla and associated headache of the same timeframe. The tendon intensity with associated phonophobia photophobia and left lower extremity weakness and numbness. Initial studies in the ER included a CTA of the chest and abdomen and CT of the head were negative EKG shows normal sinus rhythm. According to patient pain of the chest comes and goes would not agree to evaluate effectiveness of noted. Patient has premature coronary artery disease in the family. Patient presented to have a stress test which was negative She was in the interim treated with aspirin, statin morphine and oxygen which was later weaned off. CT and MRI of the brain were negative neurology feels this is TIA although I feel there is a component of hemiplegic migraine going on. This patient did have photophobia and phonophobia. Neurology did recommend outpatient evaluation for possible neuropathy. This has been explained to the patient and family and she verbalized understanding she is clinically stable at this point for discharge also discussed the diagnosis of GERD to the patient and she will follow-up with GI per her primary care physician. Atypical chest pain likely secondary to GERD TIA Hemiplegic migraine Old Right upper extremity paresthesias and new left lower extremity hemiplegia. Bradycardia * Asymptomatic. Disposition: [id number]/[place]-06 HOME [facility] Time spent for discharge: 35 mins Core Measure Documentation - Palliative Care Palliative Care/ Comfort Measures: Not Applicable - Core Measures Any of the following diagnoses?: stroke - VTE Discharge Requirements Deep Vein Thrombosis/Pulmonary Embolism Present on Admission: No - Stroke Discharge Requirements Statin for LDL = or >70 mg/dl on DC: Yes Anticoag for atrial fib/atrial flutter: Not Applicable Antithrombotic for ischemic stroke: Yes Exam - Physical Exam Narrative exam: VITAL SIGNS: Reviewed. GENERAL: The patient appeared well nourished and normally developed. Vital signs as documented. HEAD: No signs of head trauma. EYES: Pupils are equal. Extraocular motions intact. EARS: Hearing grossly intact. MOUTH: Oropharynx is normal. NECK: No adenopathy, no JVD. CHEST: Chest with clear breath sounds bilaterally. No wheezes, rales, or rhonchi. CARDIAC: Regular rate and rhythm. S1 and S2, without murmurs, gallops, or rubs. VASCULAR: No Edema. Peripheral pulses normal and equal in all extremities. ABDOMEN: Soft, without detectable tenderness. No sign of distention. No rebound or guarding, and no masses palpated. Bowel Sounds normal. MUSCULOSKELETAL: Good range of motion of all major joints. Extremities without clubbing, cyanosis or edema. NEUROLOGIC EXAM: Alert and oriented x 3. No focal sensory or strength deficits. Speech normal. Follows commands. PSYCHIATRIC: Mood normal. SKIN: No rash or lesions. - Constitutional Vitals: Temp Pulse Resp BP Pulse Ox 98.5 F 59 L 18 130/75 95 09/18/17 07:26 09/18/17 07:26 09/18/17 07:26 09/18/17 07:26 09/18/17 07:26 Plan Activity: advance as tolerated, fall precautions Diet: low cholesterol, low salt Special Instructions: record daily weights, record daily BP diary, physical therapy Durable Medical Equipment Needed Upon Discharge: [place]-[employer]ling Follow up with: REJI HEMPHILL MD [Primary Care Provider] - 3-5 Days PUMA PINEDA MD [Staff Physician] - 7 Days Forms: Work/School Release Form Prescriptions: Simvastatin 20 mg PO QHS #30 tablet Butalb/Acetamin/Caff 50-325-40 [Fioricet] 1 tab PO Q6H PRN #30 tablet PRN Reason: Headache HYDROcodone/APAP 7.5-325 [[place] 7.5-325 mg TAB] 1 each PO Q6H PRN #14 tablet PRN Reason: Pain, Moderate (4-6)
[2017-09-18 16:11] VITALS: BP 126/77
== END 2017-09-18 19:00 | disposition home health service (06) | DRG 392 ==
LOC: ED 10:12 → 3A 09-16 08:12
PROVIDERS: ADMIT Internal Medicine; ATTEND Internal Medicine
DX: K21.9 Gastro-esophageal reflux disease without esophagitis (principal); G45.9 Transient cerebral ischemic attack, unspecified; G81.94 Hemiplegia, unspecified affecting left nondominant side; I69.351 Hemiplegia and hemiparesis following cerebral infarction affecting right dominant side; E78.00 Pure hypercholesterolemia, unspecified; I25.10 Atherosclerotic heart disease of native coronary artery without angina pectoris; R00.1 Bradycardia, unspecified; H53.149 Visual discomfort, unspecified; G43.409 Hemiplegic migraine, not intractable, without status migrainosus; Z90.49 Acquired absence of other specified parts of digestive tract; Z90.710 Acquired absence of both cervix and uterus; Z82.49 Family history of ischemic heart disease and other diseases of the circulatory system
CPT/HCPCS: 36415; 70450; 70551; 71275; 74174; 78452; 80048; 80061; 81001; 82962; 84484; 85025; 85610; 85730; 86850; 86900; 86901; 93005; 93010; 93017; 96374; 96375; 99285; A9270-GY; A9502; J1200; J2765; J2785; Q9967